=== PATIENT | male | born 1945 | race Caucasian/White ===

== ENCOUNTER 2017-04-07 07:23 | Day surgery (SDC) | payer MEDICARE ==
[2017-04-07 08:28] LABS: Basophils % (Auto) 0.5 % (0.0-1.8); Eosinophils % (Auto) 2.6 % (0.0-4.3); Hematocrit 40.1 % (35.5-45.6); Mean Corpuscular HGB Conc 32 % (32-34); Mean Corpuscular Hemoglobin 31 pg (28-32); Mean Corpuscular Volume 96 fl (84-94); Platelet Count 143 K/mm3 (140-440); Red Blood Count 4.18 M/mm3 (3.65-5.03); White Blood Count 4.4 K/mm3 (4.5-11.0)
[2017-04-07 08:36] LABS: BUN/Creatinine Ratio 19.16; Calcium 8.8 mg/dL (8.4-10.2); Chloride 104.7 mmol/L (98-107)
[2017-04-07 08:40] LABS: Potassium 5.3 mmol/L (3.6-5.0)
[2017-04-07] MEDS ORDERED: ECOTRIN PO ONE (09:00)
[2017-04-07] MEDS ORDERED: NACL 0.9% 500 ML 500 ML IV SCH (09:00)
[2017-04-07 09:48] LABS: BUN/Creatinine Ratio 15.71; Calcium 8.7 mg/dL (8.4-10.2); Chloride 106.7 mmol/L (98-107); Potassium 4.2 mmol/L (3.6-5.0)
[2017-04-07] MEDS ORDERED: HEPARIN/NS 5000 UNIT/500ML(CATH LAB) 500 ML IR ONE (09:55)
[2017-04-07] MEDS ORDERED: HEPARIN 10,000 UNITS/10 ML ONE (09:57)
[2017-04-07] MEDS: HEPARIN/NS 5000 UNIT/500ML(CATH LAB) 500 ML IR ONE ×2 (11:20→11:54)
[2017-04-07] MEDS: SUBLIMAZE ONE ×2 (11:33→11:53)
[2017-04-07] MEDS: VERSED ONE ×2 (11:33→11:53)
[2017-04-07] MEDS: XYLOCAINE 2% INFILTRATI ONE ×2 (11:33→11:54)
--- NOTE | 2017-04-07 13:22 | Discharge Summary ---
Short Stay Discharge Plan Activity: advance as tolerated Diet: low fat, low cholesterol, low salt Wound: keep clean and dry Special Instructions: no heavy lifting (3 days) Additional Instructions: REFERRED FOR CABG EVALUATION. Follow up with: ERAN MCCOY MD [Primary Care Provider] - 7 Days DARIN YAO MD [Staff Physician] - 7 Days
[2017-04-07] MEDS ORDERED: NACL 0.9% 1000 ML 1,000 ML IV SCH (14:00)
[2017-04-07 14:11] VITALS: BP 169/75
--- NOTE | 2017-04-07 18:53 | Cardiac Catherization Report ---
REASON FOR PROCEDURE: The patient is a 71-year-old man who was evaluated for an abnormal outpatient ECG. A thallium stress test demonstrated a moderate sized anterior defect with mild reversible ischemia. Based on the abnormal thallium stress test, he was recommended for a cardiac catheterization. PROCEDURE: The patient was prepped and draped in a sterile fashion after informed consent. The right femoral artery was entered using the Seldinger technique followed by placement of a 6-Amharic sheath. Selective left and right coronary angiography was performed using #4 right and left Naomi catheters. A pigtail catheter was used for left ventricle angiography. The catheters were removed, sheath removed, and hemostasis achieved using an Angio-Seal device. The patient was returned to the postprocedure unit in stable condition. There were no complications. FINDINGS: HEMODYNAMICS: Left ventricle end diastolic pressure was 20-24, following coronary angiography. The ascending aortic pressure was 163/66. There was no significant pressure gradient on pullback across the aortic valve. CORONARY ANGIOGRAPHY: There was moderate, diffuse coronary calcification, chiefly involving the left coronary vessels. The left main coronary artery contained mild proximal narrowing. The left anterior descending artery contained mild ostial disease. Following this, a large bifurcating proximal diagonal branch of the LAD was noted, to contain an 80% ostial stenosis. Following the first diagonal branch, the mid LAD was notable for a long, 90%-95% stenosis associated with delayed antegrade flow down the distal LAD. The circumflex artery contained diffuse mild to moderate atherosclerosis in its proximal AV groove segment before its bifurcation into 2 medium to large obtuse marginals. The terminal obtuse marginal contained a 60% stenosis of its mid segment. The right coronary artery was a large dominant vessel. This vessel contained a long irregular, 40%-50% stenosis of its proximal segment. There was [id number] left ventricular systolic dysfunction, left ventricular ejection fraction of 40%-45%. CONCLUSION: 1. Multivessel coronary disease as above. 2. Severe disease is noted of the mid LAD, and the ostium of a large proximal diagonal branch. 3. Mild to moderate left ventricular systolic dysfunction, ejection fraction 40%-45%. RECOMMENDATION: Revascularization options will be considered. Coronary intervention to the mid LAD will be achievable at low risk, but further intervention of the ostium of the first diagonal branch will be at elevated risk. It is likely that the patient may be more optimally managed with coronary bypass to the LAD and the diagonal branch. JOB# [id number] SOCRATES/MARNI
== END 2017-04-07 07:24 | disposition home or self-care (01) ==
LOC: CATHLABREC 07:23
PROVIDERS: ATTEND Internal Medicine Cardiovascular Disease
DX: I25.10 Atherosclerotic heart disease of native coronary artery without angina pectoris (principal); I10 Essential (primary) hypertension; E11.9 Type 2 diabetes mellitus without complications; M10.9 Gout, unspecified; E78.5 Hyperlipidemia, unspecified; Z79.899 Other long term (current) drug therapy; Z79.84 Long term (current) use of oral hypoglycemic drugs; Z82.49 Family history of ischemic heart disease and other diseases of the circulatory system
CPT/HCPCS: 36415; 80048; 85025; 85610; 85730; 93005; 93010; 93458; C1760; C1894; J1644; J2250; J3010; J7040; Q9967

== ENCOUNTER 2018-12-17 15:36 | Observation (INO) | payer MEDICARE ==
--- NOTE | 2018-12-17 17:13 | Emergency Department Report ---
Blank Doc - Documentation Documentation: 73 y o clinton sent here from his PCP DR lauren Romo for platelet count of 53,000 LAbs ordered Pt in no distress
[2018-12-17 17:49] LABS: Basophils % (Auto) 0.5 % (0.0-1.8); Eosinophils # (Auto) 0.1 K/mm3 (0.0-0.4); Eosinophils % (Auto) 2.5 % (0.0-4.3); Hemoglobin 11.1 gm/dl (11.8-15.2); Lymphocytes # (Auto) 0.7 K/mm3 (1.2-5.4); Lymphocytes % (Auto) 20.5 % (13.4-35.0); Mean Corpuscular HGB Conc 34 % (32-34); Mean Corpuscular Volume 97 fl (84-94); Monocytes # (Auto) 0.4 K/mm3 (0.0-0.8); Red Blood Count 3.42 M/mm3 (3.65-5.03); Red Cell Distribution Width 18.2 % (13.2-15.2)
[2018-12-17 17:53] LABS: Platelet Count 49 K/mm3 (140-440)
[2018-12-17 18:01] LABS: INR 1.02 (0.87-1.13)
[2018-12-17 18:02] LABS: Partial Thromboplastin Time 27.3 Sec. (24.2-36.6)
[2018-12-17 18:03] LABS: Calcium 9.3 mg/dL (8.4-10.2)
--- NOTE | 2018-12-17 20:57 | Emergency Department Report ---
ED Recheck HPI - General Chief Complaint: Recheck/Abnormal Lab/Rx Stated Complaint: DOC SENT CRITICAL BLOOD TEST Time Seen by Provider: 12/17/18 20:42 Source: patient Mode of arrival: Ambulatory Limitations: Language Barrier - History of Present Illness Initial Comments: Patient is a 73-year-old male that presents emergency room with complaints of abnormal platelet count. Patient states she was called by his primary care and was sent to the ER for further evaluation of a low platelet count at 53. Patient states she's never had a low platelet count. Patient denies chest pain. Patient denies headache. Patient denies bleeding. Patient denies shortness of breath. Patient called son on phone to translate Patient brought his past medical history with him. Chart from primary care reviewed. Patient has a past medical history of CKD-3, diabetes type 2, Hyperlipidemia, Hypertension, Gout, BPH, chronic pain, CAD, hypothyroidism, GERD. MD Complaint: abnormal lab -: Sudden Returns Today for: CBOAL Symptoms Since Prior Visit: no new symptoms Context: called for abnorm lab res - Related Data Home Medications Medication Instructions Recorded Confirmed Last Taken Allopurinol [Zyloprim] 100 mg PO DAILY 04/07/17 04/07/17 04/06/17 Atenolol [Tenormin] 50 mg PO DAILY 04/07/17 04/07/17 04/07/17 Cholecalciferol Vit D3 [Vitamin D3 1,000 unit PO DAILY 04/07/17 04/07/17 04/06/17 1,000 UNIT TAB] Clonidine HCl [Kapvay] 0.1 mg PO DAILY PRN 04/07/17 04/07/17 Unknown Doxazosin [Cardura] 8 mg PO QHS 04/07/17 04/07/17 04/06/17 Levothyroxine [Synthroid] 125 mcg PO DAILY 04/07/17 04/07/17 04/06/17 Lisinopril [Zestril TAB] 10 mg PO DAILY 04/07/17 04/07/17 04/06/17 Lovastatin [Altoprev] 40 mg PO DAILY 04/07/17 04/07/17 04/06/17 glipiZIDE [Glucotrol] 5 mg PO BID 04/07/17 04/07/17 04/06/17 Allergies Allergy/AdvReac Type Severity Reaction Status Date / Time No Known Allergies Allergy Verified 04/07/17 08:27 ED Review of Systems ROS: Stated complaint: DOC SENT CRITICAL BLOOD TEST Other details as noted in HPI Constitutional: denies: chills, fever Eyes: denies: eye pain, eye discharge, vision change ENT: denies: ear pain, throat pain Respiratory: denies: cough, shortness of breath, wheezing Cardiovascular: denies: chest pain, palpitations Endocrine: no symptoms reported Gastrointestinal: denies: abdominal pain, nausea, diarrhea Genitourinary: denies: urgency, dysuria Musculoskeletal: denies: back pain, joint swelling, arthralgia Skin: denies: rash, lesions Neurological: denies: headache, weakness, paresthesias Psychiatric: denies: anxiety, depression Hematological/Lymphatic: denies: easy bleeding, easy bruising ED Past Medical Hx - Past Medical History Previous Medical History?: Yes Hx Hypertension: Yes Hx Diabetes: Yes Hx GERD: Yes Hx Renal Disease: Yes Hx Arthritis: Yes (gout) - Surgical History Past Surgical History?: No - Family History Family history: no significant - Social History Smoking Status: Former Smoker - Medications Home Medications: Home Medications Medication Instructions Recorded Confirmed Last Taken Type Allopurinol [Zyloprim] 100 mg PO DAILY 04/07/17 04/07/17 04/06/17 History Atenolol [Tenormin] 50 mg PO DAILY 04/07/17 04/07/17 04/07/17 History Cholecalciferol Vit D3 [Vitamin D3 1,000 unit PO DAILY 04/07/17 04/07/17 04/06/17 History 1,000 UNIT TAB] Clonidine HCl [Kapvay] 0.1 mg PO DAILY PRN 04/07/17 04/07/17 Unknown History Doxazosin [Cardura] 8 mg PO QHS 04/07/17 04/07/17 04/06/17 History Levothyroxine [Synthroid] 125 mcg PO DAILY 04/07/17 04/07/17 04/06/17 History Lisinopril [Zestril TAB] 10 mg PO DAILY 04/07/17 04/07/17 04/06/17 History Lovastatin [Altoprev] 40 mg PO DAILY 04/07/17 04/07/17 04/06/17 History glipiZIDE [Glucotrol] 5 mg PO BID 0904/07/17 04/06/17 History ED Physical Exam - General Limitations: Language Barrier General appearance: alert, in no apparent distress - Head Head exam: Present: atraumatic, normocephalic - Eye Eye exam: Present: normal appearance - ENT ENT exam: Present: mucous membranes moist - Neck Neck exam: Present: normal inspection - Respiratory Respiratory exam: Present: normal lung sounds bilaterally. Absent: respiratory distress - Cardiovascular Cardiovascular Exam: Present: regular rate, normal rhythm. Absent: systolic murmur, diastolic murmur, rubs, gallop - GI/Abdominal GI/Abdominal exam: Present: soft, normal bowel sounds - Rectal Rectal exam: Present: deferred - Extremities Exam Extremities exam: Present: normal inspection - Back Exam Back exam: Present: normal inspection - Neurological Exam Neurological exam: Present: alert, oriented X3 - Psychiatric Psychiatric exam: Present: normal affect, normal mood - Skin Skin exam: Present: warm, dry, intact, normal color. Absent: rash ED Course Vital Signs 12/17/18 12/17/18 12/17/18 19:16 21:28 22:00 Temperature 97.9 F Pulse Rate 60 61 62 Respiratory 18 16 19 Rate Blood Pressure 166/76 166/74 Blood Pressure [Left] O2 Sat by Pulse 96 99 98 Oximetry 12/17/18 12/17/18 12/17/18 22:16 23:00 23:16 Temperature Pulse Rate 60 60 Respiratory 18 21 18 Rate Blood Pressure 158/83 Blood Pressure 147/70 [Left] O2 Sat by Pulse 100 98 98 Oximetry - Reevaluation(s) Reevaluation #1: Discussed all results with patient. Patient will be admitted to the hospitalist service. Patient agrees to plan of care. 12/17/18 21:15 - Consultations Consultation #1: Hospitalist consultation for admission. Hospitalist to admit patient. Hospitalist to assume care patient. 12/17/18 21:15 Consultation #2: Hematology, Dr. Gracia consulted. Dr. Gracia recommends admission to the hospitalist service for further eval and treatment. And he will see the patient in the morning 12/17/18 21:40 ED Recheck MDM - Core Measures AMI Core Measures Followed: Yes - Differential Diagnosis low platelets. Anemia. ITP. Medication - Medical Decision Making Patient is a 73-year-old male presents emergency from for abnormal platelet count. Patient around 49. Patient was admitted to the hospitalist service for further evaluation treatment. Patient agrees plan of care. Hematology consult ed. Critical Care Time: Yes Critical care attestation.: If time is entered above; I have spent that time in minutes in the direct care of this critically ill patient, excluding procedure time. Critical Care Time: 35 minutes ED Disposition Clinical Impression: Thrombocytopenia Hypertension Qualifiers: Hypertension type: essential hypertension Qualified Code(s): I10 - Essential (primary) hypertension CKD (chronic kidney disease) Qualifiers: Chronic kidney disease stage: unspecified stage Qualified Code(s): N18.9 - Chronic kidney disease, unspecified Disposition: 09 OP ADMIT IP TO THIS HOSP Is pt being admited?: Yes Does the pt Need Aspirin: No Condition: Critical Time of Disposition: 21:17
[2018-12-17] MEDS ORDERED: SODIUM CHLORIDE FLUSH SYRINGE 10 ML IV PRN (22:31)
[2018-12-17] MEDS ORDERED: AMBIEN PO PRN (22:31)
[2018-12-17] MEDS ORDERED: PERCOCET 5/325 PO PRN (22:31)
[2018-12-17] MEDS ORDERED: TYLENOL PO PRN (22:31)
[2018-12-17] MEDS ORDERED: ZOFRAN IV PRN (22:31)
--- NOTE | 2018-12-17 22:36 | History and Physical Report ---
History of Present Illness Date of examination: 12/17/18 Chief complaint: Low platelet level History of present illness: Patient is a 73-year-old Georgian male who presented to the ED with complaint of abnormal platelet count. Patient stated that he was called by his primary care and told to go to the ED for further evaluation because of a low platelet count at 53. Of note, patient understands very little Yoruba and and a credit rating checker could not be reached over the phone. Patient has no prior history of low platelet count. He denies chest pain, shortness of breath, leg swelling, fever, chills, headache, nausea, vomiting, lightheadedness, syncope or loss of consciousness. No reported bleeding from any orifice. In the ED, the blending technician was consulted and he recommended admission for further evaluation. Past History Past Medical History: CAD, diabetes, GERD, heart failure, hypertension, hyperlipidemia, hypothyroidism, renal failure, other ( Gout, BPH, chronic pain) Past Surgical History: CABG Social history: no significant social history (no current history of tobacco, alcohol or illicit drug use) Family history: other (reviewed and noncontributory to thrombocytopenia) Medications and Allergies Allergies Allergy/AdvReac Type Severity Reaction Status Date / Time No Known Allergies Allergy Verified 04/07/17 08:27 Home Medications Medication Instructions Recorded Confirmed Last Taken Type Allopurinol [Zyloprim] 100 mg PO DAILY 04/07/17 04/07/17 04/06/17 History Atenolol [Tenormin] 50 mg PO DAILY 04/07/17 04/07/17 04/07/17 History Cholecalciferol Vit D3 [Vitamin D3 1,000 unit PO DAILY 04/07/17 04/07/17 04/06/17 History 1,000 UNIT TAB] Clonidine HCl [Kapvay] 0.1 mg PO DAILY PRN 04/07/17 04/07/17 Unknown History Doxazosin [Cardura] 8 mg PO QHS 04/07/17 04/07/17 04/06/17 History Levothyroxine [Synthroid] 125 mcg PO DAILY 04/07/17 04/07/17 04/06/17 History Lisinopril [Zestril TAB] 10 mg PO DAILY 04/07/17 04/07/17 04/06/17 History Lovastatin [Altoprev] 40 mg PO DAILY 0904/07/17 04/06/17 History glipiZIDE [Glucotrol] 5 mg PO BID 04/07/17 04/07/17 04/06/17 History Review of Systems All systems: negative (except as documented in the HPI, 14 point system reviewed were negative) Exam - Constitutional Vitals: Temp Pulse Resp BP Pulse Ox 97.9 F 60 18 166/76 100 12/17/18 19:16 12/17/18 19:16 12/17/18 22:16 12/17/18 19:16 12/17/18 22:16 General appearance: Present: no acute distress - EENT Eyes: Present: PERRL, EOM intact ENT: hearing intact, clear oral mucosa - Neck Neck: Present: supple, normal ROM - Respiratory Respiratory effort: normal Respiratory: bilateral: CTA - Cardiovascular Rhythm: regular Heart Sounds: Present: S1 & S2 - Extremities Extremities: pulses symmetrical, No edema - Abdominal General gastrointestinal: Present: soft, non-tender, normal bowel sounds Male genitourinary: Present: deferred - Integumentary Integumentary: Present: clear, warm, dry - Musculoskeletal Musculoskeletal: strength equal bilaterally - Psychiatric Psychiatric: appropriate mood/affect, intact judgment & insight - Neurologic Neurologic: CNII-XII intact Results - Labs CBC & Chem 7: 12/17/18 17:22 12/17/18 17:22 Labs: Laboratory Last Values WBC 3.4 K/mm3 (4.5-11.0) L 12/17/18 17:22 RBC 3.42 M/mm3 (3.65-5.03) L 12/17/18 17:22 Hgb 11.1 gm/dl (11.8-15.2) L 12/17/18 17:22 Hct 33.0 % (35.5-45.6) L 12/17/18 17:22 MCV 97 fl (84-94) H 12/17/18 17:22 MCH 33 pg (28-32) H 12/17/18 17:22 MCHC 34 % (32-34) 12/17/18 17:22 RDW 18.2 % (13.2-15.2) H 12/17/18 17:22 Plt Count 49 K/mm3 (140-440) L 12/17/18 17:22 Lymph % (Auto) 20.5 % (13.4-35.0) 12/17/18 17:22 Drew % (Auto) 12.0 % (0.0-7.3) H 12/17/18 17:22 Eos % (Auto) 2.5 % (0.0-4.3) 12/17/18 17:22 Baso % (Auto) 0.5 % (0.0-1.8) 12/17/18 17:22 Lymph # 0.7 K/mm3 (1.2-5.4) L 12/17/18 17:22 Drew # 0.4 K/mm3 (0.0-0.8) 12/17/18 17:22 Eos # 0.1 K/mm3 (0.0-0.4) 12/17/18 17:22 Baso # 0.0 K/mm3 (0.0-0.1) 12/17/18 17:22 Seg Neutrophils % 64.5 % (40.0-70.0) 12/17/18 17:22 Seg Neutrophils # 2.2 K/mm3 (1.8-7.7) 12/17/18 17:22 PT 14.0 Sec. (12.2-14.9) 12/17/18 17:22 INR 1.02 (0.87-1.13) 12/17/18 17:22 APTT 27.3 Sec. (24.2-36.6) 12/17/18 17:22 Sodium 142 mmol/L (137-145) 12/17/18 17:22 Potassium 4.6 mmol/L (3.6-5.0) 12/17/18 17:22 Chloride 104.1 mmol/L (98-107) 12/17/18 17:22 Carbon Dioxide 25 mmol/L (22-30) 12/17/18 17:22 18 mmol/L 12/17/18 17:22 BUN 31 mg/dL (9-20) H 12/17/18 17:22 1.7 mg/dL (0.8-1.5) H 12/17/18 17:22 Estimated GFR 40 ml/min 12/17/18 17:22 18 % 12/17/18 17:22 Glucose 124 mg/dL (75-100) H 05/23/19 17:22 Calcium 9.3 mg/dL (8.4-10.2) 12/17/18 17:22 Assessment and Plan Assessment and plan: Acute thrombocytopenia (49K) -No evidence of active bleeding, will monitor level -Further evaluation per Hematology consulted in the ED Acute on chronic kidney disease stage III -On IV fluid, we'll monitor creatinine level Chronic systolic heart failure with EF of 40-45% -No acute exacerbation CAD status post CABG -Stable Hypertension -Uncontrolled -On antihypertensives, adjust as needed Hypothyroidism -Continue Synthroid Hyperlipidemia -Resume statin DM2 -Controlled -On SSI GERD -On Protonix Gout -No acute flare DVT prophylaxis with SCD Disposition: For discharge when medically stable and cleared by hematology Time spent: 38 minutes
[2018-12-17] MEDS ORDERED: NACL 0.45% 1000 ML 1,000 ML IV SCH (23:00)
[2018-12-17] MEDS ORDERED: NACL 0.45% 500 ML IV SCH (23:00)
[2018-12-17] MEDS ORDERED: APRESOLINE IV PRN (23:34)
[2018-12-17] MEDS ORDERED: D50W (25GM) Syringe IV PRN (23:41)
[2018-12-18] MEDS ORDERED: SYNTHROID PO SCH (06:00)
[2018-12-18 06:28] LABS: Hemoglobin 11.2 gm/dl (11.8-15.2); Mean Corpuscular HGB Conc 33 % (32-34); Mean Corpuscular Volume 98 fl (84-94); Red Blood Count 3.48 M/mm3 (3.65-5.03); Red Cell Distribution Width 18.9 % (13.2-15.2)
[2018-12-18 06:37] LABS: Platelet Count 50 K/mm3 (140-440)
[2018-12-18 06:56] LABS: Calcium 8.6 mg/dL (8.4-10.2)
[2018-12-18] MEDS: HumaLOG SUB-Q SCH ×2 (08:04→13:25)
--- NOTE | 2018-12-18 09:36 | Progress Note ---
Hospitalist Physical - Constitutional Vitals: Temp Pulse Resp BP Pulse Ox 98 F 58 L 20 143/71 96 12/18/18 03:23 12/18/18 03:23 12/18/18 03:23 12/18/18 03:23 12/18/18 03:23 General appearance: Present: no acute distress Results - Labs CBC & Chem 7: 12/18/18 05:46 12/18/18 05:46 Labs: Laboratory Last Values WBC 3.7 K/mm3 (4.5-11.0) L 12/18/18 05:46 RBC 3.48 M/mm3 (3.65-5.03) L 12/18/18 05:46 Hgb 11.2 gm/dl (11.8-15.2) L 12/18/18 05:46 Hct 34.0 % (35.5-45.6) L 12/18/18 05:46 MCV 98 fl (84-94) H 12/18/18 05:46 MCH 32 pg (28-32) 12/18/18 05:46 MCHC 33 % (32-34) 12/18/18 05:46 RDW 18.9 % (13.2-15.2) H 12/18/18 05:46 Plt Count 50 K/mm3 (140-440) L 12/18/18 05:46 Lymph % (Auto) 20.5 % (13.4-35.0) 12/17/18 17:22 [place] % (Auto) 12.0 % (0.0-7.3) H 12/17/18 17:22 Eos % (Auto) 2.5 % (0.0-4.3) 12/17/18 17:22 Baso % (Auto) 0.5 % (0.0-1.8) 12/17/18 17:22 Lymph # 0.7 K/mm3 (1.2-5.4) L 12/17/18 17:22 [place] # 0.4 K/mm3 (0.0-0.8) 12/17/18 17:22 Eos # 0.1 K/mm3 (0.0-0.4) 12/17/18 17:22 Baso # 0.0 K/mm3 (0.0-0.1) 12/17/18 17:22 Seg Neutrophils % 64.5 % (40.0-70.0) 12/17/18 17:22 Seg Neutrophils # 2.2 K/mm3 (1.8-7.7) 12/17/18 17:22 PT 14.0 Sec. (12.2-14.9) 12/17/18 17:22 INR 1.02 (0.87-1.13) 12/17/18 17:22 APTT 27.3 Sec. (24.2-36.6) 12/17/18 17:22 Sodium 142 mmol/L (137-145) 12/18/18 05:46 Potassium 4.4 mmol/L (3.6-5.0) 12/18/18 05:46 Chloride 106.2 mmol/L (98-107) 12/18/18 05:46 Carbon Dioxide 23 mmol/L (22-30) 12/18/18 05:46 17 mmol/L 12/18/18 05:46 BUN 33 mg/dL (9-20) H 12/18/18 05:46 1.8 mg/dL (0.8-1.5) H 12/18/18 05:46 Estimated GFR 37 ml/min 12/18/18 05:46 18 % 12/18/18 05:46 Glucose 129 mg/dL (75-100) H 12/18/18 05:46 POC Glucose 113 (70-105) H 12/18/18 07:32 Calcium 8.6 mg/dL (8.4-10.2) 12/18/18 05:46 Active Medications - Current Medications Current Medications: Generic Name Dose Route Start Last Admin Trade Name Freq PRN Reason Stop Dose Admin Acetaminophen 650 mg 12/17/18 22:31 Tylenol PO Q4H PRN Pain MILD(1-3)/Fever >100.5/SMALL Amlodipine Besylate 10 mg 12/18/18 10:00 Norvasc PO QDAY CLAUDE Carvedilol 6.25 mg 12/18/18 10:00 Coreg PO BID CLAUDE Dextrose 50 ml 12/17/18 23:41 D50w (25gm) Syringe IV PRN PRN Hypoglycemia Hydralazine HCl 10 mg 12/17/18 23:34 Apresoline IV Q4HR PRN Blood Pressure Sodium Chloride 1,000 mls @ 100 mls/hr 12/17/18 23:00 Nacl 0.45% 1000 Ml IV 12/19/18 22:59 DIRECT [facility] Insulin Human Lispro 0 unit 12/18/18 07:30 12/18/18 08:04 Humalog SUB-Q Not Given ACHS [facility] Protocol Levothyroxine Sodium 125 mcg 12/18/18 06:00 12/18/18 06:10 Synthroid PO 125 mcg DAILY@0600 [facility] Administration Ondansetron HCl 4 mg 12/17/18 22:31 Zofran IV Q8H PRN Nausea And Vomiting Oxycodone/Acetaminophen 1 tab 12/17/18 22:31 Percocet 5/325 PO Q6H PRN Pain, Moderate (4-6) Pantoprazole Sodium 40 mg 12/18/18 10:00 Protonix PO QDAY [facility] Sodium Chloride 10 ml 12/18/18 10:00 Sodium Chloride Flush Syringe 10 Ml IV BID CLAUDE Sodium Chloride 10 ml 12/17/18 22:31 Sodium Chloride Flush Syringe 10 Ml IV PRN PRN LINE FLUSH Zolpidem Tartrate 5 mg 12/17/18 22:31 Ambien PO QHS PRN Insomnia
[2018-12-18] MEDS ORDERED: SODIUM CHLORIDE FLUSH SYRINGE 10 ML IV SCH (10:00)
[2018-12-18] MEDS ORDERED: PROTONIX PO SCH (10:00)
[2018-12-18] MEDS ORDERED: COREG PO SCH ×2 (10:00)
[2018-12-18] MEDS ORDERED: NORVASC PO SCH (10:00)
--- NOTE | 2018-12-18 11:09 | Event Note ---
Date: 12/18/[address] lauren gómez d/w son over tel d/w dr fonseca OP follow up an option no active bleeding
[2018-12-18 11:40] LABS: Iron 77 ug/dL (49-181); Total Iron Binding Capacity 275 mcg/dL (250-450)
--- NOTE | 2018-12-18 13:33 | Discharge Summary ---
Providers - Providers Date of Admission: 12/17/18 22:31 Date of discharge: 12/18/18 Attending physician: PINKY MANCINI 12/17/18 21:41 Consult to Physician [CONS] Routine Comment: Dr. Aguilar spoke with Dr. Gracia @ [phone] Consulting Provider: KIM GRACIA Physician Instructions: Reason For Exam: low plate Primary care physician: ERAN MCCOY Hospitalization Condition: Fair Hospital course: Patient is a 73-year-old male who presented to the ED with complaint of abnormal platelet count. Patient stated that he was called by his primary care and told to go to the ED for further evaluation because of a low platelet count at 53. Patient has no prior history of low platelet count. He denies chest pain, shortness of breath, leg swelling, fever, chills, headache, nausea, vomiting, lightheadedness, syncope or loss of consciousness. No reported bleeding from any orifice. Labs drawn in ED showed platelet count of 49. In the ED, the sap project manager was consulted and he recommended admission for further evaluation. She was evaluated by Dr. Gracia, and recommended patients may be discharged home to follow as an outpatient so he was discharged on 12/18/2018 Disposition: DC-01 TO HOME OR SELFCARE - Discharge Diagnoses (1) CAD (coronary artery disease) Status: Acute (2) CKD (chronic kidney disease) Status: Acute Qualifiers: Chronic kidney disease stage: unspecified stage Qualified Code(s): N18.9 - Chronic kidney disease, unspecified (3) Hypertension Status: Acute Qualifiers: Hypertension type: essential hypertension Qualified Code(s): I10 - Essential (primary) hypertension (4) Thrombocytopenia Status: Acute Core Measure Documentation - Palliative Care Palliative Care/ Comfort Measures: Not Applicable - Core Measures Any of the following diagnoses?: none Exam - Constitutional Vitals: Temp Pulse Resp BP Pulse Ox 98 F 58 L 20 143/71 98 12/18/18 03:23 12/18/18 03:23 12/18/18 03:23 12/18/18 03:23 12/18/18 10:47 Plan Activity: no restrictions Diet: low fat, low cholesterol, low salt Additional Instructions: 1.Follow u with PCP in 1 week. 2.follow up with Dr. Gracia, Hematology on 12/24/18 Follow up with: ERAN MCCOY MD [Primary Care Provider] - 3-5 Days
[2018-12-18 14:21] VITALS: BP 147/78
--- NOTE | 2018-12-21 19:03 | Consultation ---
REFERRING PHYSICIAN: Se Loredo MD REASON FOR CONSULTATION: Low platelets. HISTORY OF PRESENT ILLNESS: I saw the patient, a 73-year-old Portuguese male in the medical floor. The ER doctor had called me before that the patient had seen Dr. Abbott, the primary care. The patient's platelets were low. He was sent to the hospital. I called the patient's son over the telephone. At this time; no headache, no visual disturbances. No ear discharge, no chest pain, no palpitation, no abdominal pain, no vomiting, no diarrhea, no dysuria. No hematemesis, no hematochezia. No bruises, no other bleeding issues. The patient's platelet was found to be 50 when he was admitted for evaluation. PAST MEDICAL HISTORY: Coronary artery disease, diabetes, heart failure, hypertension, hyperlipidemia, hypothyroidism, renal impairment, gout. PAST SURGICAL HISTORY: CABG. SOCIAL HISTORY: No history of tobacco or alcohol usage. FAMILY HISTORY: Noncontributory. ALLERGIES: None. HOME MEDICATIONS: Include allopurinol, vitamin D, clonidine, levothyroxine, lisinopril, lovastatin, glipizide. PHYSICAL EXAMINATION: VITAL SIGNS: Temperature 98, pulse 58, respirations 20, BP 147/78. HEENT: No pallor, no icterus. NECK: No neck lymph nodes. HEART: S1, S2. LUNGS: Clear to auscultation. Scar of surgery of coronary artery bypass graft in the chest present. ABDOMEN: Soft. EXTREMITIES: No calf tenderness. NEUROLOGIC: Alert, awake, oriented. LABORATORY DATA: White cell 3.7, hemoglobin 11.2, MCV 98, platelet 50. Potassium 4.4, creatinine 1.8, calcium 8.6, serum iron 77, B12 of 214, folate 16, ferritin 94. ASSESSMENT: 1. Thrombocytopenia. No bleeding. Platelet counts are more than 30, we will observe. We will follow in the clinic. 2. Leukopenia, neutrophil was more than 1. 3. Renal impairment. 4. Low normal B12. 5. History of hypothyroidism. 6. History of hyperlipidemia. 7. History of diabetes. 8. History of heart failure. 9. History of hypertension. I will follow the patient during inpatient stay and then in the clinic setting as there are no acute issues with low platelets outpatient followup is an option. JOB# [id number] MICHOACANO/MARNI
== END 2018-12-18 14:25 | disposition home or self-care (01) ==
LOC: ED 15:36 → 2B-ACE 22:31 → INTOOBSV 22:31 → 2B-ACE 23:00
PROVIDERS: ADMIT Internal Medicine; ATTEND Internal Medicine
DX: D69.6 Thrombocytopenia, unspecified (principal); I13.0 Hypertensive heart and chronic kidney disease with heart failure and stage 1 through stage 4 chronic kidney disease, or unspecified chronic kidney disease; N18.3 Chronic kidney disease, stage 3 (moderate); I50.22 Chronic systolic (congestive) heart failure; E11.22 Type 2 diabetes mellitus with diabetic chronic kidney disease; I25.10 Atherosclerotic heart disease of native coronary artery without angina pectoris; E03.9 Hypothyroidism, unspecified; E78.5 Hyperlipidemia, unspecified; K21.9 Gastro-esophageal reflux disease without esophagitis; M10.9 Gout, unspecified; N40.0 Benign prostatic hyperplasia without lower urinary tract symptoms; G89.29 Other chronic pain; Z95.1 Presence of aortocoronary bypass graft; Z79.899 Other long term (current) drug therapy
CPT/HCPCS: 36415; 80048; 82607; 82728; 82747; 82962; 83550; 85025; 85027; 85610; 85730; 99291; G0378

== ENCOUNTER 2019-09-27 09:29 | Outpatient (CLI) | payer MEDICARE ==
--- NOTE | 2019-09-27 15:43 | Vascular Lab Report ---
Ultrasound of portal and hepatic veins INDICATION: Portal hypertension. Ascites. COMPARISON: None available. FINDINGS: Expected color flow is seen within the portal and hepatic veins. Minimal ascites is seen along the liver. No significant abnormality of the liver is identified. IMPRESSION: 1. Expected ultrasound appearance of the portal and hepatic veins. 2. Minimal amount of ascites. Signer Name: Clem Augustin MD Signed: 09/27/2019 3:39 PM Workstation Name: [id number]
== END 2019-09-27 09:30 | disposition home or self-care (01) ==
LOC: US 09:29
PROVIDERS: ATTEND Internal Medicine Gastroenterology
DX: R18.8 Other ascites (principal); K76.6 Portal hypertension
CPT/HCPCS: 93979